=== PATIENT | female | born 1955 | race Caucasian/White ===

== ENCOUNTER 2017-08-07 13:23 | Emergency (ER) | payer OTHER ==
[~2017-08-07] VITALS: Wt 61.5 kg
[~2017-08-07 13:23] MED LIST: AMLO-147 PO; ASPI-638 PO; ATEN-51 PO; ERGO500014 PO; HYDR25TA6 PO
[2017-08-07] MEDS ORDERED: METOPROLOL 25 MG TAB PO ONE (14:00)
[2017-08-07 14:05] LABS: BASOPHILS % 0.2 % (0.0-2.0); EOSINOPHILS % 0.2 % (0.0-7.0); HEMATOCRIT 38.5 % (37.0-47.0); HEMOGLOBIN 13.2 g/dl (12.0-16.0); LYMPHOCYTES # 1.4 10^3/ul (0.8-2.9); LYMPHOCYTES % 15.2 % (15.0-51.0); MEAN CORPUSCULAR HEMOGLOBIN 26.6 pg (29.0-33.0); MEAN CORPUSCULAR HGB CONC 34.3 g/dl (32.0-37.0); MEAN CORPUSCULAR VOLUME 77.6 fl (82.0-101.0); MEAN PLATELET VOLUME 10.5 fl (7.4-10.4); MONOCYTE # 0.6 10^3/ul (0.3-0.9); NEUTROPHILS % 77.1 % (39.0-77.0); PLATELET COUNT 328 10^3/UL (140-415); RED BLOOD COUNT 4.96 10^6/ul (4.20-5.40); RED CELL DISTRIBUTION WIDTH 15.4 % (11.5-14.5)
--- NOTE | 2017-08-07 14:14 | RADRPT ---
PROCEDURE: XR portable chest CLINICAL INDICATION: Chest pain TECHNIQUE: Portable semi upright chest radiograph COMPARISON: None available FINDINGS: Status post median sternotomy. Thoracic aorta atherosclerotic mural calcifications. Borderline enlar ged cardiac silhouette. The lung parenchyma and visualized pleural surfaces are unremarkable. Spondylosis of the visualized spine. IMPRESSION: 1. Cardiac silhouette borderline enlargement. Compare to prior corresponding imaging studies. RPTAT: TT Natalie Amado Physician Date Time Electronically viewed and signed by Natalie Amado Physician on 08/07/2017 14:13 JS/
[2017-08-07 14:20] LABS: INR 0.92; PROTIME 12.4 Sec (12.2-14.2)
[2017-08-07 14:21] LABS: PARTIAL THROMBOPLASTIN TIME 30.9 Sec (25.0-35.0)
[2017-08-07 14:24] LABS: ANION GAP 18 (8-16); BLOOD UREA NITROGEN 10 mg/dl (7-20); CARBON DIOXIDE 28 mmol/L (21-31); CHLORIDE 95 mmol/L (97-110); CREATININE 0.57 mg/dl (0.44-1.00); GLUCOSE 141 mg/dl (70-220); SODIUM 138 mmol/L (135-144)
[2017-08-07] MEDS ORDERED: CHLO25TA13 PO (14:25)
[2017-08-07] MEDS ORDERED: LOSA25TA5 PO (14:25)
[2017-08-07] MEDS ORDERED: MECL-77 PO (14:25)
[2017-08-07] MEDS ORDERED: GLUC100015 PO (14:25)
[2017-08-07 14:29] LABS: POTASSIUM 2.9 mmol/L (3.5-5.1)
[2017-08-07 14:32] VITALS: BP 130/69; PULSE 89; RESP 20; TEMP 99.1
[2017-08-07 14:35] LABS: TROPONIN-I < 0.012 ng/ml (0.00-0.12)
[2017-08-07] MEDS ORDERED: POTASSIUM CHLORIDE (SR) 20 MEQ TAB PO STA (14:39)
[2017-08-07] MEDS ORDERED: METO-448 PO (14:44)
[2017-08-07] MEDS ORDERED: ASPI325T4 PO (14:45)
--- NOTE | 2017-08-07 14:50 | ERD ---
ER Documentation Chief Complaint Chief Complaint dizziness/weakness/bilat knee pain/palpitations x1week HPI 62-year-old female presents the emergency department complaining of generalized weakness 1 week. Patient states that over the course of the last week, she has been having intermittent palpitations and a sense of generalized weakness. She reports no focal weakness, numbness or difficulty speaking or stroke symptoms. She reports no chest pain, fever or shortness of breath. ROS All systems reviewed and are negative except as per history of present illness. Medications Home Meds Active Scripts Aspirin* (Aspirin*) 325 Mg Tablet, 325 MG PO DAILY, #20 TAB Prov:AMELIA ARNOLD 08/07/17 Metoprolol Tartrate* (Lopressor*) 25 Mg Tab, 25 MG PO BID, #60 TAB Prov:AMELIA ARNOLD 08/07/17 Reported Medications Meclizine Hcl* (Meclizine Hcl*) 25 Mg Tablet, 25 MG PO Q8H Y for DIZZINESS, TAB 08/07/17 Losartan Potassium* (Losartan Potassium*) 25 Mg Tablet, 25 MG PO DAILY, TAB 08/07/17 Glucosamine Sulfate 2KCL (GLUCOSAMINE) 1,000 Mg Tablet, 1000 MG PO DAILY, TAB 08/07/17 Chlorthalidone* (Chlorthalidone*) 25 Mg Tablet, 25 MG PO DAILY, TAB 08/07/17 Aspirin (Children's Aspirin) 81 Mg Tab.chew, 81 MG PO DAILY 10/25/15 Ergocalciferol* (Drisdol* (Vitamin D2)) 50,000 Unit Capsule, 23666 UNIT PO Q7D, CAP 10/25/15 Amlodipine Besylate* (Amlodipine Besylate*) 10 Mg Tablet, 10 MG PO DAILY, TAB 07/08/14 Discontinued Reported Medications Hydrochlorothiazide* (Hydrochlorothiazide*) 25 Mg Tab, 25 MG PO DAILY, TAB 07/08/14 Atenolol* (Atenolol*) 25 Mg Tablet, 25 MG PO DAILY, TAB 07/08/14 Allergies Allergies: Coded Allergies: No Known Allergy (Unverified , 07/08/14) PMhx/Soc History of Surgery: Yes (heart surgery) Hx Cardiac Disorders: Yes (high cholesterol; hypertension) Hx Alcohol Use: No Hx Substance Use: No Hx Tobacco Use: No Smoking Status: Former smoker FmHx Noncontributory for chief complaint Physical Exam Vitals Vital Signs Date Time Temp Pulse Resp B/P Pulse Ox O2 Delivery O2 Flow Rate FiO2 08/07/17 14:32 99.1 89 20 130/69 99 Room Air 08/07/17 13:27 99.1 129 26 166/77 97 Physical Exam GENERAL: The patient is well developed and appropriate for usual state of health in no apparent distress HEENT: Pupils equal, round, and reactive to light. EOMI. There is no scleral icterus. NECK: C-spine is soft and supple, there is no meningismus. There is no cervical lymphadenopathy. LUNGS: Clear to auscultation bilaterally. There are no rales, wheezes or rhonchi. HEART: Sternotomy scar is noted. Irregularly irregular rate and rhythm. Soft murmur over the precordium. ABDOMEN: Soft, non-tender, non-distended. There are bowel sounds in all four quadrants. No rebound or guarding. EXTREMITIES: There is no peripheral cyanosis or edema. No focal swelling or erythema. NEURO: The patient moves all four extremities with 5/5 strength. Cranial nerves II - XII are intact. Normal gait. Alert and oriented SKIN: There is no apparent rash or petechiae. HEME/LYMPHATIC: There is no evidence of excessive bruising or lymphedema. PSYCHIATRIC: The patient does not appear anxious or depressed. Result Diagram: 08/07/17 1345 08/07/17 1345 Results 24 hrs Laboratory Tests Test 08/07/17 13:45 White Blood Count 9.010^3/ul Red Blood Count 4.9610^6/ul Hemoglobin 13.2g/dl Hematocrit 38.5% Mean Corpuscular Volume 77.6fl Mean Corpuscular Hemoglobin 26.6pg Mean Corpuscular Hemoglobin Concent 34.3g/dl Red Cell Distribution Width 15.4% Platelet Count 77274^3/UL Mean Platelet Volume 10.5fl Neutrophils % 77.1% Lymphocytes % 15.2% Monocytes % 7.0% Eosinophils % 0.2% Basophils % 0.2% Nucleated Red Blood Cells % 0.0/100WBC Neutrophils # 7.010^3/ul Lymphocytes # 1.410^3/ul Monocytes # 0.610^3/ul Eosinophils # 0.010^3/ul Basophils # 0.010^3/ul Nucleated Red Blood Cells # 0.010^3/ul Prothrombin Time 12.4Sec Prothrombin Time Ratio 1.0 INR International Normalized Ratio 0.92 Activated Partial Thromboplast Time 30.9Sec Sodium Level 138mmol/L Potassium Level 2.9mmol/L Chloride Level 95mmol/L Carbon Dioxide Level 28mmol/L Anion Gap 18 Blood Urea Nitrogen 10mg/dl Creatinine 0.57mg/dl Glucose Level 141mg/dl Calcium Level 10.0mg/dl Troponin I < 0.012ng/ml Current Medications Medications (Trade) Dose Ordered Sig/Fern Route PRN Reason Start Time Stop Time Status Last Admin Dose Admin Metoprolol Tartrate (Lopressor) 25 mg ONCE ONCE PO 08/07/17 14:00 08/07/17 14:01 DC 08/07/17 14:09 Potassium Chloride (Klor-Con 20) 40 meq ONCE STAT PO 08/07/17 14:39 08/07/17 14:40 DC Procedures/MDM Patient was taken to a room, seen and evaluated. Comfort measures were initiated. Diagnostic tests were ordered and reviewed. 3 LEAD RHYTHM STRIP: Initial rhythm demonstrated atrial fibrillation/A flutter with 2-1 block and PVCs. Patient had a total ventricular rate approximately 110 120. She then spontaneously cardioverted into a normal sinus rhythm. Occasionally she would go back and forth into a controlled A. fib a flutter but mostly remained in normal sinus rhythm. She was in a normal sinus rhythm prior to discharge. EK lead EKG reviewed by myself: A. fib/A flutter with PVCs with total ventricular rate at 110. Normal [place] and intervals Nonspecific ST and T-wave changes without ST elevation Impression: Nonspecific EKG with a regular rhythm. Repeat EKG demonstrated a normal sinus rhythm without ischemic changes RADIOLOGY: reviewed with the radiologist REEVALUATION: Patient has remained asymptomatic in the emergency department and has felt well. All her diagnostic results were discussed with her. MEDICAL DECISION MAKIN-year-old female with a history of valvular heart disease status post sternotomy presents the emergency department with what appears to be on previously diagnosed atrial fibrillation/flutter. At this time , patient's ventricular rate is controlled and she has no ischemic symptoms. Her EKG has converted to normal sinus rhythm without significant ischemic changes. She shows no evidence of other infection, ischemia or other high-risk concerns. Overall, she appears clinically well and appropriate for outpatient care with Cardiologic follow-up. Departure Diagnosis: Primary Impression: Atrial fibrillation and flutter Condition: Stable Patient Instructions: What Is Atrial Flutter/Atrial Fibrillation? Additional Instructions: Please follow up with your doctor this week. You should be seeing a social research assistant regularly. Return for any problems or concerns AMELIA ARNOLD Aug 07, 2017 14:50
== END 2017-08-07 15:07 | disposition home or self-care (01) ==
LOC: E/R 13:23
DX: I48.92 Unspecified atrial flutter (principal); I10 Essential (primary) hypertension; R40.2142 Coma scale, eyes open, spontaneous, at arrival to emergency department; R40.2252 Coma scale, best verbal response, oriented, at arrival to emergency department; R40.2362 Coma scale, best motor response, obeys commands, at arrival to emergency department; R07.9 Chest pain, unspecified; Z87.891 Personal history of nicotine dependence; Z79.82 Long term (current) use of aspirin
CPT/HCPCS: 36415; 71010; 80048; 84484; 85025; 85610; 85730; Z7502; Z7610

== ENCOUNTER 2017-08-14 16:13 | Emergency (ER) | payer OTHER ==
[~2017-08-14] VITALS: Ht 152.4 cm; Wt 61.4 kg
[~2017-08-14 16:13] MED LIST changes: +ASPI325T4 PO; -ATEN-51 PO; +CHLO25TA13 PO; +GLUC100015 PO; -HYDR25TA6 PO; +LOSA25TA5 PO; +MECL-77 PO; +METO-448 PO
[2017-08-14 16:24] VITALS: Ht 152.4 cm; Wt 61.4 kg
[2017-08-14] MEDS ORDERED: ASPIRIN 81 MG TAB PO STA (17:38)
[2017-08-14 18:30] LABS: BASOPHILS % 0.1 % (0.0-2.0); EOSINOPHILS % 0.1 % (0.0-7.0); HEMATOCRIT 39.2 % (37.0-47.0); HEMOGLOBIN 13.2 g/dl (12.0-16.0); LYMPHOCYTES # 1.2 10^3/ul (0.8-2.9); LYMPHOCYTES % 18.1 % (15.0-51.0); MEAN CORPUSCULAR HEMOGLOBIN 26.2 pg (29.0-33.0); MEAN CORPUSCULAR HGB CONC 33.7 g/dl (32.0-37.0); MEAN CORPUSCULAR VOLUME 77.8 fl (82.0-101.0); MEAN PLATELET VOLUME 10.8 fl (7.4-10.4); MONOCYTE # 0.6 10^3/ul (0.3-0.9); MONOCYTES % 9.3 % (0.0-11.0); NEUTROPHIL # 4.9 10^3/ul (1.6-7.5); NEUTROPHILS % 72.1 % (39.0-77.0); PLATELET COUNT 261 10^3/UL (140-415); RED BLOOD COUNT 5.04 10^6/ul (4.20-5.40); RED CELL DISTRIBUTION WIDTH 15.3 % (11.5-14.5); WHITE BLOOD COUNT 6.9 10^3/ul (4.8-10.8)
[2017-08-14 18:42] LABS: ANION GAP 18 (8-16); BLOOD UREA NITROGEN 7 mg/dl (7-20); CARBON DIOXIDE 29 mmol/L (21-31); CHLORIDE 93 mmol/L (97-110); CREATININE 0.53 mg/dl (0.44-1.00); GLUCOSE 151 mg/dl (70-220); SODIUM 137 mmol/L (135-144)
--- NOTE | 2017-08-14 18:43 | RADRPT ---
PROCEDURE: Chest xray. CLINICAL INDICATION: chest pain TECHNIQUE: A portable semiupright AP view of the chest was obtained. COMPARISON: 08/07/2017 FINDINGS: Median sternotomy wires are again noted. The cardiomediastinal silhouette is within normal limits. The lungs are well expanded and show normal vascularity. No focal opacity, pleural effusion, or pne umothorax is identified. The skeletal structures and soft tissues are unremarkable. IMPRESSION: No acute intrathoracic abnormality. RPTAT:HKMK .Jessica Chan MD, MD Date Time Electronically viewed and signed by .Jessica Chan MD, on 08/14/2017 18:42 .K/
[2017-08-14] MEDS ORDERED: POTASSIUM CHLORIDE (SR) 20 MEQ TAB PO STA (18:45)
[2017-08-14] MEDS ORDERED: KETOROLAC 30 MG INJ IV STA (18:45)
[2017-08-14 18:46] LABS: POTASSIUM 2.8 mmol/L (3.5-5.1)
[2017-08-14 18:54] LABS: B-TYPE NATRIURETIC PEPTIDE 275 PG/ML (0-125)
[2017-08-14 18:55] LABS: TROPONIN-I < 0.012 ng/ml (0.00-0.12)
[2017-08-14] MEDS ORDERED: LIDOCAINE/MYLANTA 40 ML BTL PO ONE (19:00)
[2017-08-14] MEDS ORDERED: POTASSIUM CHLORIDE (SR) 20 MEQ TAB PO ONE (22:08)
[2017-08-14] MEDS ORDERED: RANI150T9 PO (22:15)
[2017-08-14 22:30] VITALS: BP 108/59; PULSE 66; RESP 21
--- NOTE | 2017-08-14 22:40 | ERD ---
ER Documentation Chief Complaint Chief Complaint Chest pain/pressure, palpitations, SOB HPI 62-year-old female presents with a pressure-like aching substernal chest pain that goes down the center of her chest with no other radiations. Also feels like she has had some shortness of breath and palpitations with it. Denies nausea or vomiting. Pain is been going on this morning has been the same. ROS All systems reviewed and are negative except as per history of present illness. Medications Home Meds Active Scripts Ranitidine Hcl* (Zantac*) 150 Mg Tablet, 150 MG PO BID, #60 TAB Prov:CLARENCE MELENDEZ DO 08/14/17 Aspirin* (Aspirin*) 325 Mg Tablet, 325 MG PO DAILY, #20 TAB Prov:AMELIA ARNOLD 08/07/17 Metoprolol Tartrate* (Lopressor*) 25 Mg Tab, 25 MG PO BID, #60 TAB Prov:AMELIA ARNOLD 08/07/17 Reported Medications Meclizine Hcl* (Meclizine Hcl*) 25 Mg Tablet, 25 MG PO Q8H Y for DIZZINESS, TAB 08/07/17 Losartan Potassium* (Losartan Potassium*) 25 Mg Tablet, 25 MG PO DAILY, TAB 08/07/17 Glucosamine Sulfate 2KCL (GLUCOSAMINE) 1,000 Mg Tablet, 1000 MG PO DAILY, TAB 08/07/17 Chlorthalidone* (Chlorthalidone*) 25 Mg Tablet, 25 MG PO DAILY, TAB 08/07/17 Aspirin (Children's Aspirin) 81 Mg Tab.chew, 81 MG PO DAILY 10/25/15 Ergocalciferol* (Drisdol* (Vitamin D2)) 50,000 Unit Capsule, 75204 UNIT PO Q7D, CAP 10/25/15 Amlodipine Besylate* (Amlodipine Besylate*) 10 Mg Tablet, 10 MG PO DAILY, TAB 07/08/14 Discontinued Reported Medications Hydrochlorothiazide* (Hydrochlorothiazide*) 25 Mg Tab, 25 MG PO DAILY, TAB 07/08/14 Atenolol* (Atenolol*) 25 Mg Tablet, 25 MG PO DAILY, TAB 07/08/14 Allergies Allergies: Coded Allergies: No Known Allergy (Unverified , 08/14/17) PMhx/Soc History of Surgery: Yes (HEART SX) Anesthesia Reaction: No Hx Neurological Disorder: No Hx Respiratory Disorders: No Hx Cardiac Disorders: Yes (high cholesterol; hypertension, HEART MURMUR) Hx Psychiatric Problems: No Hx Miscellaneous Medical Probl: No Hx Alcohol Use: No Hx Substance Use: No Hx Tobacco Use: No Smoking Status: Never smoker Physical Exam Vitals Vital Signs Date Time Temp Pulse Resp B/P Pulse Ox O2 Delivery O2 Flow Rate FiO2 08/14/17 19:00 86 24 125/64 97 08/14/17 17:55 93 23 149/70 98 08/14/17 16:24 98.3 95 19 150/73 96 Physical Exam Const: [] Distress, appears uncomfortable Head: Atraumatic Eyes: Normal Conjunctiva ENT: Normal External Ears, Nose and Mouth. Neck: Full range of motion..~ No meningismus. Resp: Clear to auscultation bilaterally Cardio: Regular rate and rhythm, no murmurs Abd: Soft, non tender, non distended. Normal bowel sounds Skin: No petechiae or rashes Ext: No cyanosis, or edema Neur: Awake and alert 3, no focal deficits Psych: Normal Mood and Affect Result Diagram: 08/14/17180408/14/171804 Results 24 hrs Laboratory Tests Test 08/14/17 18:05 08/14/17 18:35 White Blood Count 6.910^3/ul Red Blood Count 5.0410^6/ul Hemoglobin 13.2g/dl Hematocrit 39.2% Mean Corpuscular Volume 77.8fl Mean Corpuscular Hemoglobin 26.2pg Mean Corpuscular Hemoglobin Concent 33.7g/dl Red Cell Distribution Width 15.3% Platelet Count 59123^3/UL Mean Platelet Volume 10.8fl Neutrophils % 72.1% Lymphocytes % 18.1% Monocytes % 9.3% Eosinophils % 0.1% Basophils % 0.1% Nucleated Red Blood Cells % 0.0/100WBC Neutrophils # 4.910^3/ul Lymphocytes # 1.210^3/ul Monocytes # 0.610^3/ul Eosinophils # 0.010^3/ul Basophils # 0.010^3/ul Nucleated Red Blood Cells # 0.010^3/ul Sodium Level 137mmol/L Potassium Level 2.8mmol/L Chloride Level 93mmol/L Carbon Dioxide Level 29mmol/L Anion Gap 18 Blood Urea Nitrogen 7mg/dl Creatinine 0.53mg/dl Glucose Level 151mg/dl Calcium Level 10.0mg/dl Troponin I < 0.012ng/ml B-Type Natriuretic Peptide 275PG/ML Magnesium Level 1.9mg/dl Current Medications Medications (Trade) Dose Ordered Sig/Fern Route PRN Reason Start Time Stop Time Status Last Admin Dose Admin Aspirin (Aspirin) 162 mg ONCE STAT PO 08/14/17 17:38 08/14/17 17:40 DC 08/14/17 18:58 Miscellaneous Medication (Gi Cocktail (2)) 40 ml ONCE ONCE PO 08/14/17 19:00 08/14/17 19:01 DC 08/14/17 19:00 Ketorolac Tromethamine (Toradol) 30 mg ONCE STAT IV 08/14/17 18:45 08/14/17 18:47 DC 08/14/17 19:00 Potassium Chloride (Klor-Con 20) 40 meq ONCE STAT PO 08/14/17 18:45 08/14/17 18:47 DC 08/14/17 18:58 Potassium Chloride (Klor-Con 20) 40 meq ONCE ONCE PO 08/14/17 22:08 08/14/17 22:14 DC 08/14/17 22:20 Procedures/MDM 52-year-old female with atypical chest pain. She given an aspirin put on a radiation monitor. EKG was performed is nonischemic. She was given a GI cocktail which calmed her pain and resolved all of her symptoms. She has risk factors I offered her admission but she stated that she did not want to stay. She had a negative troponin. She has had pain all day have low suspicion for acute coronary syndrome although I am recommending that she get an outpatient echocardiogram through her primary care doctor next week to make sure. I have low suspicion for pulmonary embolism as well. Discharge with primary care follow-up in 2 3 days and a Zantac prescription. She also had low potassium of 2.8 and was given K-Dur 80 mg p.o. total. She is able to swallow this with no difficulties. EKG interpretation: Sinus rhythm rate of 74, normal axis, no ST or T-wave changes concerning for acute ischemia, normal intervals. Nonspecific ST-T wave abnormality. Monitor interpretation: Normal sinus rhythm without arrhythmia Chest x-ray interpretation: I see no acute process. I see no infiltrate, pneumothorax, no pulmonary edema, no fractures Departure Diagnosis: Primary Impression: Chest pain Additional Impressions: Gastroesophageal reflux disease Hypokalemia Condition: Stable Patient Instructions: Chest Pain, Uncertain Cause, Gerd (Adult) Additional Instructions: Llame al doctor MAANA y brendon sangita HARI PARA DENTRO DE 2-3 ALFRED. Consique un referral para un ECHOCARDIOGRAM. Dgale a la secretaria que nosotros le instruimos hacer esta hari.Avise o llame si quiroz condicin se empeora antes de la hari. Regresa aqui si peor o no mejor. CLARENCE MELENDEZ DO Aug 14, 2017 22:40
== END 2017-08-14 23:10 | disposition home or self-care (01) ==
LOC: E/R 16:13
DX: R07.2 Precordial pain (principal); K21.9 Gastro-esophageal reflux disease without esophagitis; E87.6 Hypokalemia; I10 Essential (primary) hypertension; R06.02 Shortness of breath; Z79.82 Long term (current) use of aspirin
CPT/HCPCS: 36415; 71010; 80048; 83735; 83880; 84484; 85025; 96374; J1885; Z7502; Z7610; 93005

== ENCOUNTER 2018-03-08 11:32 | Emergency (ER) | END 2018-03-08 13:45 | disposition home or self-care (01) ==